=== PATIENT | female | born 1945 | race Caucasian/White ===

== ENCOUNTER 2020-01-26 00:29 | Emergency (ER) | payer BC, MEDICARE ==
--- NOTE | 2020-01-26 01:19 | EDM.PDOC ---
ED HPI GENERAL MEDICAL PROBLEM - General Chief Complaint: Laceration Stated Complaint: SCALP LACERATION Time Seen by Provider: 01/26/20 01:01 Source of Information: Reports: Family, Other (assisted staff) History Limitations: Reports: Altered Mental Status - History of Present Illness INITIAL COMMENTS - FREE TEXT/NARRATIVE: Patient from [facility] comes to have laceration repair. Unwitnessed fall in room. No witnessed period of unconsciousness. Laceration back of head. Is acting per her normal baseline per [facility] staff and patient's daughter. Patient's daughter transported patient to ER. No other injuries reported/observed. Last tetanus immunization 2013 Treatments IT RISK AND ASSURANCE SENIOR MANAGER: Reports: Dressing(s) Past Medical History Cardiovascular History: Reports: High Cholesterol, Other (See Below) (edema) Musculoskeletal History: Reports: Osteoporosis Psychiatric History: Reports: Alzheimers Disease, Anxiety, Depression Endocrine/Metabolic History: Reports: Hypothyroidism Social & Family History - Living Situation & Occupation Living situation: Reports: Extended Care Facility ED ROS GENERAL - Review of Systems Review Of Systems: Unable To Obtain Reason Not Obtained: dementia ED EXAM, SKIN/RASH Exam: See Below Exam Limited By: Other (dementa) General Appearance: Alert, WD/WN, No Apparent Distress Eye Exam: Bilateral Eye: EOMI, PERRL Ears: Normal External Exam Nose: No: Nasal Deformity, Nasal Swelling, Nasal Drainage Throat/Mouth: Normal Lips, Normal Voice, No Airway Compromise Head: Other (laceration posterior head/scalp) Neck: Supple, Non-Tender, Full Range of Motion Respiratory/Chest: No Respiratory Distress Cardiovascular: Regular Rate, Rhythm GI/Abdominal: Soft, Non-Tender (Female) Exam: Deferred Rectal (Female) Exam: Deferred Back Exam: No: Muscle Spasm Extremities: Normal Capillary Refill, Other (Moves all 4s equally) Neurological: Other (awake, interacts with staff, confused) Psychiatric: Normal Affect, Normal Mood Skin: Warm, Wound/Incision Location, Skin: Head ED SKIN PROCEDURES - Laceration/Wound Repair Occipital Head Appearance: Subcutaneous, Linear, Clean Skin Prep: Chlorhexidine (Hibiciens) Exploration/Debridement/Repair: Wound Explored, In a Bloodless Field, Explored to Base, No Foreign Material Found Closed with: [place]/Wound length In cm: 2.0 # of Sutures: 3 Complications: No Course - Vital Signs Last Recorded V/S: Last Vital Signs Temp 36.1 C 0525/20 00:30 Pulse 112 H 01/26/20 00:30 Resp 16 01/26/20 00:30 BP 128/75 01/26/20 00:30 Pulse Ox 96 01/26/20 00:30 - Re-Assessments/Exams Free Text/Narrative Re-Assessment/Exam: 01/26/20 01:29 Patient DNR/DNI. Nursing staff discussed performing CT of head and neck to rule out intracranial trauma and fracture given history of unwitnessed fall and patient's daughter declined. Laceration repaired. OK to return to [place]. Departure - Departure Time of Disposition: 01:30 Disposition: DC/Tfer to SNF 03 Condition: Good Clinical Impression: Scalp laceration Qualifiers: Encounter type: initial encounter Qualified Code(s): S01.01XA - Laceration without foreign body of scalp, initial encounter - Discharge Information *PRESCRIPTION DRUG MONITORING PROGRAM REVIEWED*: Not Applicable *COPY OF PRESCRIPTION DRUG MONITORING REPORT IN PATIENT MOHAMUD: Not Applicable Referrals: PCP,Unknown [Primary Care Provider] - Forms: ED Department Discharge Additional Instructions: Apply topical antibiotic ointment to wound twice daily. Follow up if there are any concerns/signs of infection. Have lefty removed SundayFebruary 01. Sepsis Event Note - Evaluation Sepsis Screening Result: No Definite Risk - Focused Exam Vital Signs: Vital Signs Temp Pulse Resp BP Pulse Ox 01/26/20 00:30 36.1 C 112 H 16 128/75 96 Date Exam was Performed: 01/26/20 Time Exam was Performed: 01:19
[2020-01-26] MEDS ORDERED: Bacitracin/Neomycin/Polymyxin B Oint 0.9 GM U/D Packet TOP ONE (01:26)
[2020-01-26] MEDS ORDERED: Bacitracin Oint 1 GM U/D Packet TOP ONE (01:33)
== END 2020-01-26 02:00 ==
LOC: LL.ED 00:29
DX: S01.01XA Laceration without foreign body of scalp, initial encounter (principal); W19.XXXA Unspecified fall, initial encounter
CPT/HCPCS: 12001; 99284

== ENCOUNTER 2020-04-29 10:35 | Emergency (ER) | payer OTHER, MEDICARE ==
--- NOTE | 2020-04-29 10:56 | EDM.PDOC ---
ED HPI GENERAL MEDICAL PROBLEM - General Chief Complaint: Lower Extremity Injury/Pain Stated Complaint: fall, hip pain Time Seen by Provider: 04/29/20 10:55 Source of Information: Reports: EMS, Family (Daughter and Tata MEDRANO), Longterm Records, Old Records ( [facility] EMR. No paper hospital chart available.). Denies: EMS Notes Reviewed (Not available at time of dictation) History Limitations: Reports: Altered Mental Status - History of Present Illness INITIAL COMMENTS - FREE TEXT/NARRATIVE: The patient was brought to the emergency room via ambulance with occasional caregiver accompaniment with no treatment in route. 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 At about 9 AM this morning the patient had a witnessed fall by another custodial resident and fell backwards with a minor head injury but no loss of consciousness, change in mental status, headaches, nausea, vomiting, or other change in neurological status. The patient complained of right hip and lower back pain since the above fall. Note current hospice care with no recent history of apparent chest pain, anginal type symptoms, abdominal pain, UTI symptoms, fever, cough, dyspnea, etc. Her arthritis is otherwise been stable with no evidence of other injuries. Onset: Today, Sudden Onset Date: 04/29/20 Onset Time: 09:00 Duration: Intermittent Location: Reports: Back, Lower Extremity, Right. Denies: Head, Face, Neck, [address], Abdomen, Pelvis, Upper Extremity, Left, Upper Extremity, Right, Lower Extremity, Left, Radiates to Quality: Reports: Ache, Same as Previous Episode Severity: Moderate Improves with: Reports: Rest Worsens with: Reports: Movement Context: Reports: Trauma Associated Symptoms: Reports: Confusion (Stable chronic). Denies: Chest Pain, Cough, Diaphoresis, Fever/Chills, Headaches, Loss of Appetite, Malaise, Nausea/Vomiting, Seizure, Shortness of Breath, Syncope, Weakness Treatments APPLIED BEHAVIOR SCIENCE SPECIALIST: Reports: Other (see below) (None) - Related Data Allergies Allergy/AdvReac Type Severity Reaction Status Date / Time bee venom protein (honey bee) Allergy Anaphylactic Verified 04/29/20 12:00 Shock cat dander Allergy Cannot Verified 04/29/20 10:56 Remember sulfamethoxazole Allergy Rash Verified 04/29/20 12:00 [From Bactrim] trimethoprim [From Bactrim] Allergy Rash Verified 04/29/20 12:00 Home Meds: Home Meds EPINEPHrine [Auvi-Q] 0.1 mg IM ASDIRECTED PRN 01/26/20 [History] Furosemide [Lasix] 20 mg PO DAILY 01/26/20 [History] Glycopyrrolate 1 mg PO Q8HR PRN 01/26/20 [History] LORazepam [Ativan] 0.5 tab PO Q4HR PRN 01/26/20 [History] Levothyroxine Sodium [Levo-T] 50 mcg PO DAILY 01/26/20 [History] Non-Formulary Medication [NF Drug] 2 mg PO Q1H PRN 01/26/20 [History] Sennosides/Docusate Sodium [Docuzen 8.6-50 mg Tablet] 1 each PO BID 01/26/20 [History] polyethylene glycoL 3350 [Miralax] 17 gm PO DAILY PRN 01/26/20 [History] Acetaminophen 650 mg PO BID 04/29/20 [History] Acetaminophen 650 mg PO BID PRN 04/29/20 [History] Bisacodyl [Gentle Laxative] 1 supp RECTAL DAILY PRN 04/29/20 [History] QUEtiapine Fumarate [Quetiapine Fumarate] 62.5 mg PO DAILY 04/29/20 [History] QUEtiapine Fumarate [Quetiapine Fumarate] 75 mg PO BEDTIME 04/29/20 [History] bisacodyL [Bisacodyl] 10 mg PO DAILY PRN 04/29/20 [History] Past Medical History Cardiovascular History: Reports: Heart Failure, High Cholesterol, Other (See Below) Genitourinary History: Reports: Urinary Incontinence Musculoskeletal History: Reports: Arthritis, Back Pain, Chronic, Fracture, Osteoarthritis, Osteoporosis, Other (See Below) Other Musculoskeletal History: Probable previous L1 vertebral body compression fracture. Neurological History: Reports: Alzheimers Disease, Concussion, Other (See Below) Other Neuro History: Current hospice care for her organic brain syndrome. Recurrent falls. Psychiatric History: Reports: Alzheimers Disease, Anxiety, Depression Endocrine/Metabolic History: Reports: Hypothyroidism, Osteopenia, Osteoporosis Social & Family History - Tobacco Use Tobacco Use Within Last Twelve Months: No - Living Situation & Occupation Living situation: Reports: Extended Care Facility ([facility], skilled care) Review of Systems - Review of Systems Review Of Systems: Unable To Obtain Reason Not Obtained: Organic brain syndrome as above ED EXAM, GENERAL - Physical Exam Exam: See Below Exam Limited By: Altered Mental Status General Appearance: Alert, WD/WN, Moderate Distress Eye Exam: Bilateral Eye: EOMI, Normal Fundi, Normal Inspection (No nystagmus), PERRL Ears: Normal External Exam, Normal Canal, Hearing Grossly Normal, Normal TMs Nose: Normal Inspection, Normal Mucosa, No Blood Throat/Mouth: Normal Inspection, Normal Lips, Normal Teeth, Normal Gums, Normal Oropharynx, Normal Voice, No Airway Compromise. No: Dysphagia Head: Atraumatic, Normocephalic. No: Facial Swelling, Facial Tenderness, Sinus Tenderness Neck: Supple, Non-Tender, Full Range of Motion, Carotid Bruit (Mild bilateral carotid bruits). No: Lymphadenopathy (L), Lymphadenopathy (R), Thyromegaly Respiratory/Chest: No Respiratory Distress, Lungs Clear, Normal Breath Sounds, No Accessory Muscle Use, Chest Non-Tender. No: Pleural Rub, Retractions Cardiovascular: Normal Peripheral Pulses, Regular Rate, Rhythm, No Edema, No Gallop, No JVD, No Murmur, No Rub. No: Gallop/S3, Gallop/S4, Friction Rub Peripheral Pulses: 2+: Radial (L), Radial (R), Dorsalis Pedis (L), Dorsalis Pedis (R) GI/Abdominal: Normal Bowel Sounds, Soft, Non-Tender, No Organomegaly, No Distention, No Abnormal Bruit, No Mass, Pelvis Stable. No: Guarding (Female) Exam: Deferred Rectal (Female) Exam: Deferred Back Exam: Full Range of Motion, Other (Mild scoliosis). No: CVA Tenderness (L), CVA Tenderness (R), Muscle Spasm, Paraspinal Tenderness, Vertebral Tenderness Extremities: No Pedal Edema, Normal Capillary Refill, Leg Pain (Possible right hip with outer rotation), Limited Range of Motion (Right hip). No: Alisha's Sign Neurological: Alert, Normal Reflexes (Negative Babinski's), Confused (Stable severe organic brain syndrome with patient verbal with non-comprehensible words, etc.Stable by her daughter's history.) Psychiatric: Normal Affect, Normal Mood Skin Exam: Warm, Dry, Intact, Normal Color, No Rash. No: Diaphoretic, Ecchymosis, Petechiae, Wound/Incision Lymphatic: No Adenopathy Course - Vital Signs Last Recorded V/S: Last Vital Signs Temp 36.3 C 04/29/20 10:40 Pulse 81 04/29/20 10:40 Resp 20 04/29/20 10:40 BP 107/58 L 04/29/20 10:40 Pulse Ox 100 04/29/20 10:40 - Orders/Labs/Meds Orders: Active Orders 24 hr Category Date Time Status Hip Min 1V Rt [CR] Stat Exams 04/29/20 11:08 Taken Lumbar Spine 2 or 3V [CR] Stat Exams 04/29/20 10:57 Taken Pelvis 1V or 2V [CR] Stat Exams 04/29/20 11:01 Taken Obtain Past Medical Record [OM.PC] Routine Oth 04/29/20 10:57 Active Labs: None Meds: None - Radiology Interpretation Free Text/Narrative:: X-rays of the lumbar spine, 3 views, shows no evidence of acute fracture, dislocation, etc. Probable old L1 vertebral body compression fracture with mild scoliosis. Per radiological report L1 fractures new since 07/10/2011, however current age of fracture is indeterminate by radiologist's evaluation. Note moderate osteoarthritic and osteoporotic changes. X-rays of the pelvis, 1 view, and lateral view x1 of the right hip shows no evidence of acute fracture per radiological report. Questionable hairline subcapital defect noted by my initial evaluation with radiological overread requested. Departure - Departure Time of Disposition: 14:00 Disposition: DC/Tfer to Long-Term Care 63 Condition: Good Clinical Impression: Need for comfort care, Organic brain syndrome (chronic), Right hip pain Osteoarthritis Qualifiers: Osteoarthritis location: multiple joints Osteoarthritis type: primary Qualified Code(s): M89.49 - Other hypertrophic osteoarthropathy, multiple sites Low back pain Qualifiers: Chronicity: acute Back pain laterality: bilateral Sciatica presence: without sciatica Qualified Code(s): M54.5 - Low back pain Contusion Qualifiers: Encounter type: initial encounter Contusion area: head Contusion of head detail: scalp Qualified Code(s): S00.03XA - Contusion of scalp, initial encounter - Discharge Information *PRESCRIPTION DRUG MONITORING PROGRAM REVIEWED*: Not Applicable *COPY OF PRESCRIPTION DRUG MONITORING REPORT IN PATIENT MOHAMUD: Not Applicable Instructions: Head Injury, Adult, [id number] Referrals: Cristal Spivey MD [Primary Care Provider] - Forms: ED Department Discharge Additional Instructions: 1. Follow up with your regular provider in 10-14 days as needed, if symptoms persist. Bring these discharge instructions with you to that visit.. 2. Update regular provider in the a.m. concerning patient's status 3. Continue strict fall precautions with advanced weightbearing and activity as tolerated 4. BenGay or equivalent, heating pad, and/or ice packs as directed. 5. Continue hospice and previous custodial orders as before 6. Head precautions as directed-see form, i.e., standard neurological checks after fall and head injury 7. Immediately after this visit verify that your cellular telephone's voicemail has been activated and is empty. Also verify that your home telephone's answering machine is operating properly and has space to receive messages. Note that it is sometimes necessary for us to be able to contact you at a later date to discuss your medical care. 8. Please remember that we are ALWAYS here for you and want to answer any questions you may have. Feel free to call the hospital any time and we call you back LAINE. Sepsis Event Note (ED) - Evaluation Sepsis Screening Result: No Definite Risk - Focused Exam Vital Signs: Vital Signs Temp Pulse Resp BP Pulse Ox 04/29/20 10:40 36.3 C 81 20 107/58 L 100 - Problem List & Annotations (1) Right hip pain SNOMED Code(s): 97680074 Code(s): M25.551 - PAIN IN RIGHT HIP Status: Acute Priority: High Current Visit: Yes Onset Date: 04/29/20 Annotation/Comment:: Note x-ray results and radiological overread as above. Symptomatic relief as per discharge instructions. Reinitiation of fall precautions, etc.. Further work-up depending on her clinical course, including repeat x-rays, CT scan of the hip, etc. (2) Low back pain SNOMED Code(s): 970710309 Code(s): M54.5 - LOW BACK PAIN Status: Acute Priority: High Current Visit: Yes Onset Date: 04/29/20 Annotation/Comment:: Likely old L1 vertebral body compression fracture. No significant injury by clinical exam, including palpation pain or muscle spasms in the lumbar region. Observe for now. Qualifiers: Chronicity: acute Back pain laterality: bilateral Sciatica presence: without sciatica Qualified Code(s): M54.5 - Low back pain (3) Need for comfort care SNOMED Code(s): 718076039, 710078995 Code(s): GUS4091 - Status: Chronic Priority: High Current Visit: Yes Annotation/Comment:: No current comfort and hospice care secondary to her organic brain syndrome. Hospice nurse, Hattie, is present in our facility today. No extensive work-up per their request. (4) Contusion SNOMED Code(s): 534839976 Code(s): T14.8XXA - OTHER INJURY OF UNSPECIFIED BODY REGION, INITIAL ENCOUNTER Status: Acute Priority: High Current Visit: Yes Onset Date: 04/29/20 Annotation/Comment:: Minor head contusion with no evidence of concussion. Head precautions to be conducted by custodial staff. Note baseline severe organic brain syndrome. Qualifiers: Encounter type: initial encounter Contusion area: head Contusion of head detail: scalp Qualified Code(s): S00.03XA - Contusion of scalp, initial encounter (5) Organic brain syndrome (chronic) SNOMED Code(s): 526987777 Code(s): F09 - UNSP MENTAL DISORDER DUE TO KNOWN PHYSIOLOGICAL CONDITION Status: Chronic Priority: Medium Current Visit: Yes Annotation/Comment:: As above. Otherwise stable by history with no significant change in neurological status. (6) Osteoarthritis SNOMED Code(s): 217719472 Code(s): M19.90 - UNSPECIFIED OSTEOARTHRITIS, UNSPECIFIED SITE Status: Chronic Priority: Medium Current Visit: Yes Annotation/Comment:: History of osteoporosis and otherwise stable by history. No evidence of other significant injury. Qualifiers: Osteoarthritis location: multiple joints Osteoarthritis type: primary Qualified Code(s): M89.49 - Other hypertrophic osteoarthropathy, multiple sites - Problem List Review Problem List Initiated/Reviewed/Updated: Yes - My Orders Last 24 Hours: My Active Orders 04/29/20 10:57 Lumbar Spine 2 or 3V [CR] Stat Obtain Past Medical Record [OM.PC] Routine 04/29/20 11:01 Pelvis 1V or 2V [CR] Stat 04/29/20 11:08 Hip Min 1V Rt [CR] Stat - Assessment/Plan Last 24 Hours: My Active Orders 04/29/20 10:57 Lumbar Spine 2 or 3V [CR] Stat Obtain Past Medical Record [OM.PC] Routine 04/29/20 11:01 Pelvis 1V or 2V [CR] Stat 04/29/20 11:08 Hip Min 1V Rt [CR] Stat Assessment:: As above Plan: As above. Extensive precautions were given to the patient's daughter and hospice nurse, who are in agreement with the treatment plan. See Patient Instructions for further treatment and plan.
== END 2020-04-29 14:00 ==
LOC: LL.ED 10:35
DX: S00.03XA Contusion of scalp, initial encounter (principal); M54.5 Low back pain; M89.49 Other hypertrophic osteoarthropathy, multiple sites; F09 Unspecified mental disorder due to known physiological condition; M25.551 Pain in right hip; G30.9 Alzheimer's disease, unspecified; F02.80 Dementia in other diseases classified elsewhere, unspecified severity, without behavioral disturbance, psychotic disturbance, mood disturbance, and anxiety; F41.9 Anxiety disorder, unspecified; F32.9 Major depressive disorder, single episode, unspecified; E03.9 Hypothyroidism, unspecified; Z91.030 Bee allergy status; Z91.09 Other allergy status, other than to drugs and biological substances; Z88.2 Allergy status to sulfonamides; Z79.899 Other long term (current) drug therapy; W19.XXXA Unspecified fall, initial encounter
CPT/HCPCS: 72100; 72170; 99285-25